=== PATIENT | male | born 1980 | race Hispanic/Latino ===

== ENCOUNTER 2017-05-15 14:01 | Emergency (ER) | payer SELFPAY ==
[2017-05-15 14:12] VITALS: BP 122/84; PULSE 77; RESP 18; TEMP 98.6; O2SAT 98
[2017-05-15] MEDS ORDERED: TDAP Vaccine 0.5 mL Syr IM ONE (14:14)
--- NOTE | 2017-05-15 14:14 | ED PDOC ---
Arrival/HPI - General Time Seen by Provider: 05/15/17 14:11 Historian: Patient - History of Present Illness Narrative History of Present Illness (Text): 05/15/17 14:11 37yo male present to ED for right index finger laceration. He states he accidentally cut his finger with a knife while cutting food. Not up to date with his TD vaccination. Denies paresthesia, weakness, any other complaint. Past Medical History - Provider Review Nursing Documentation Reviewed: Yes Family/Social History - Physician Review Nursing Documentation Reviewed: Yes Family/Social History: Unknown Family HX Allergies/Home Meds Allergies/Adverse Reactions: Allergies No Known Allergies Allergy (Verified 05/15/17 14:12) Review of Systems - Physician Review All systems were reviewed & negative as marked: Yes - Review of Systems Constitutional: Normal Eyes: Normal ENT: Normal Respiratory: Normal Cardiovascular: Normal Gastrointestinal: Normal Genitourinary Male: Normal Musculoskeletal: Normal Skin: Laceration (Right 2nd index finger) Neurological: Normal Endocrine: Normal Hemo/Lymphatic: Normal Psychiatric: Normal Physical Exam Vital Signs Reviewed: Yes Vital Signs Temp Pulse Resp BP Pulse Ox 05/15/17 14:08 98.6 F 77 18 122/84 98 Temperature: Afebrile Blood Pressure: Normal Pulse: Regular Respiratory Rate: Normal Appearance: Positive for: Well-Appearing, Non-Toxic, Comfortable Pain Distress: None Mental Status: Positive for: Alert and Oriented X 3 - Systems Exam Head: Present: Atraumatic, Normocephalic Pupils: Present: PERRL Extroacular Muscles: Present: EOMI Conjunctiva: Present: Normal Mouth: Present: Moist Mucous Membranes Neck: Present: Normal Range of Motion Respiratory/Chest: Present: Clear to Auscultation, Good Air Exchange. No: Respiratory Distress, Accessory Muscle Use Cardiovascular: Present: Regular Rate and Rhythm, Normal S1, S2. No: Murmurs Abdomen: Present: Normal Bowel Sounds. No: Tenderness, Distention, Peritoneal Signs Back: Present: Normal Inspection Upper Extremity: Present: Normal Inspection. No: Cyanosis, Edema Lower Extremity: Present: Normal Inspection. No: Edema Neurological: Present: GCS=15, CN II-XII Intact, Speech Normal Skin: Present: Warm, Dry, Normal Color, Laceration (Full avulsed laceration noted on lateral right index finger tip with bleeding. FROM. NVI. Strenght 5/5) . No: Rashes Psychiatric: Present: Alert, Oriented x 3, Normal Insight, Normal Concentration Medical Decision Making ED Course and Treatment: 05/15/17 14:34 Wound was irrigated with NS. Bleeding controlled with gel foam. Dressing applied and finger placed on a splint. Pt started on prophylactic abx and TD booster administered in ED. PT advised to keep wound clean and dry. Referred to his PMD. [facility] ED for any new or worsening symptoms. - Medication Orders Current Medication Orders: Discontinued Medications Cephalexin Monohydrate (Keflex) 500 mg PO STAT STA PRN Reason: Protocol Stop: 05/15/17 14:15 Last Admin: 05/15/17 14:30 Dose: 500 mg Gelatin (Gelfoam Size 12-7) Confirm Administered Dose 1 spg .ROUTE .STK-MED ONE Stop: 05/15/17 14:25 Tetanus/Reduced Diphtheria/Acell Pertussis (Boostrix Vaccine Inj) 0.5 ml IM .ONCE ONE Stop: 05/15/17 14:15 Last Admin: 05/15/17 14:28 Dose: 0.5 ml Disposition/Present on Arrival - Present on Arrival Any Indicators Present on Arrival: No History of DVT/PE: No History of Uncontrolled Diabetes: No Urinary Catheter: No History of Decub. Ulcer: No History Surgical Site Infection Following: None - Disposition Have Diagnosis and Disposition been Completed?: Yes Diagnosis: Finger laceration Disposition Time: 14:35 Patient Plan: Discharge Condition: STABLE Discharge Instructions (ExitCare): Laceration (ED) Additional Instructions: Keep wound clean and dry Follow up with your doctor Return to ED for any fever, redness, or worsening symptoms Prescriptions: Cephalexin [Keflex] 500 mg PO TID #21 capsule Referrals: [facility] [place] - Follow up with primary
[2017-05-15] MEDS ORDERED: Absorbable Gelatin Sponge Size 12-7 ONE (14:24)
== END 2017-05-15 15:03 | disposition home or self-care (01) ==
LOC: ED 14:01
DX: S61.210A Laceration without foreign body of right index finger without damage to nail, initial encounter (principal); W26.0XXA Contact with knife, initial encounter; Y93.G1 Activity, food preparation and clean up; Y92.89 Other specified places as the place of occurrence of the external cause; Z23 Encounter for immunization